=== PATIENT | male | born 1995 | race Caucasian/White ===

== ENCOUNTER 2017-09-03 23:22 | Emergency (ER) | payer OTHER ==
[~2017-09-03] VITALS: Ht 188 cm; Wt 103.9 kg
[2017-09-03 23:39] VITALS: BP 175/106
== END 2017-09-04 00:45 | disposition home or self-care (01) ==
LOC: EME 23:22
DX: S30.861A Insect bite (nonvenomous) of abdominal wall, initial encounter (principal); W57.XXXA Bitten or stung by nonvenomous insect and other nonvenomous arthropods, initial encounter; Z88.0 Allergy status to penicillin
CPT/HCPCS: 99281; 99283